=== PATIENT | female | born 1985 | race Caucasian/White ===

== ENCOUNTER 2022-01-05 15:05 | Emergency (ER) | payer MEDICAID ==
[~2022-01-05 15:05] MED LIST: CIPR-173; DOXA1TAB42; PAXIL PO; [UNRECOGNIZED DRUG - CODE]; tramadol
[2022-01-05] MEDS ORDERED: HYDROcodone-ACET 10/325MG TAB PO ONE (18:15)
[2022-01-05] MEDS ORDERED: ONDANSETRON ODT 4 MG TAB PO ONE (18:15)
[2022-01-05] MEDS ORDERED: LEVO500T31 PO (18:29)
[2022-01-05] MEDS ORDERED: ONDA-144 PO (18:29)
[2022-01-05] MEDS ORDERED: HYDR-4902 PO (18:29)
[2022-01-05 18:30] VITALS: BP 118/70
== END 2022-01-05 18:38 | disposition home or self-care (01) ==
LOC: EDBD 15:05 → ER 15:07
DX: G89.29 Other chronic pain (principal); R51.9 Headache, unspecified; E03.9 Hypothyroidism, unspecified; F17.210 Nicotine dependence, cigarettes, uncomplicated; Z87.440 Personal history of urinary (tract) infections; Z90.49 Acquired absence of other specified parts of digestive tract; Z79.899 Other long term (current) drug therapy; Z88.1 Allergy status to other antibiotic agents; Z88.8 Allergy status to other drugs, medicaments and biological substances
CPT/HCPCS: 70450; 99284; Q0162